=== PATIENT | female | born 1995 | race Caucasian/White ===

== ENCOUNTER → 2016-06-16 | Outpatient (CLI) | payer BC, OTHER ==
--- NOTE | 2016-06-16 10:22 | DIAGNOSTIC IMAGING REPORT ---
ABDOMEN COMPLETE (US) CLINICAL HISTORY: Nausea. COMPARISON STUDY: No previous studies for comparison. FINDINGS: Liver morphology is normal. No hepatic lesions are identified. There is no biliary ductal dilatation. No gallstones are identified. There is no gallbladder wall thickening of the pancreas is sonographically normal. The size of the spleen is normal. The right kidney measures 10.4 cm and the left measures 10.8 cm. Renal echogenicity, size and cortical thickness are normal. The caliber of the abdominal aorta is normal. Visualized portions of the IVC are patent. IMPRESSION: Unremarkable abdominal ultrasound. Electronically signed by: Lokesh Dickey M.D. 06/16/2016 10:20 AM
[2016-06-16 14:17] LABS: ALT/SGPT 27 U/L (12-78); AST/SGOT 14 U/L (15-37); BLOOD UREA NITROGEN 11 mg/dl (7-18); BUN/CREATININE RATIO 12.6 (10-20); CALCIUM 8.7 mg/dl (8.5-10.1); CARBON DIOXIDE 25 mmol/L (21-32); CHLORIDE 107 mmol/L (98-107); CREATININE 0.85 mg/dl (0.60-1.20); GLUCOSE 90 mg/dl (70-99); POTASSIUM 4.2 mmol/L (3.5-5.1); SODIUM 143 mmol/L (136-145)
[2016-06-16 14:21] LABS: ALB/GLOB RATIO 1.1 (0.9-2); ALKALINE PHOSPHATASE 124 U/L (45-117); AMYLASE 29 U/L (25-115)
== END | disposition home or self-care (01) ==
LOC: C.ULTRBC 09:31
PROVIDERS: ATTEND Internal Medicine Geriatric Medicine
DX: R11.0 Nausea (principal)

== ENCOUNTER → 2016-07-22 | Outpatient (CLI) | payer BC, OTHER ==
--- NOTE | 2016-07-22 12:37 | DIAGNOSTIC IMAGING REPORT ---
NUCLEAR GASTRIC EMPTYING STUDY HISTORY: Gastroparesis. Nausea. Vomiting. R11.0 [id number] COMPARISON: None. TECHNIQUE: Following the oral administration of 1.05 mCi of technetium 99m sulfur colloid in egg sandwich and 8 ounces of water, static abdominal images are obtained anteriorly and posteriorly at 0 minutes, 1 hour, 2 hour, and 4 hour time intervals. Gastric emptying was calculated utilizing the geometric mean method. FINDINGS: There is approximately 83 % activity remaining at the 1 hour time interval (normal is less than 90%), 50 % remaining at the 2 hour time interval (normal is less than 60%), and 0 % activity remaining at the 4 hour time interval (normal is less than 10%). IMPRESSION: Normal study Electronically signed by: Sam Corado M.D. 07/22/2016 12:36 PM Dictated Date/Time: 07/22/2016 12:35 PM
== END | disposition home or self-care (01) ==
LOC: C.NUCL 07:58
PROVIDERS: ATTEND Internal Medicine Geriatric Medicine
DX: R11.0 Nausea (principal)

== ENCOUNTER → 2016-12-25 | Outpatient (CLI) | payer OTHER ==
[2016-12-25 17:17] LABS: MANUAL MICROSCOPIC REQUIRED? NO; REVIEW REQ? NO; URINE APPEARANCE CLEAR (CLEAR); URINE BILIRUBIN NEG (NEG); URINE COLOR DK YELLOW; URINE NITRITE NEG (NEG); URINE PH 6.5 (4.5-7.5); URINE SPECIFIC GRAVITY 1.019 (1.000-1.030); UROBILINOGEN NEG (NEG); ZZUR CULT IF INDIC CLEAN CATCH NO
== END | disposition home or self-care (01) ==
LOC: C.LAB1850 16:05
PROVIDERS: ATTEND Physician Assistant
DX: R39.9 Unspecified symptoms and signs involving the genitourinary system (principal)

== ENCOUNTER → 2018-01-07 | Outpatient (CLI) | payer OTHER ==
[~2018-01-07] MED LIST: BUPR-83 PO; FENTANYL CITRATE INJ 50 MCG/1 ML 2 ML VIAL ONE; FEXO1TAB49 PO; HYDR1CAP85 PO; LIDOCAINE HCL 2% 2 ML VIAL (20MG/ML) ONE; MIDAZOLAM HCL 1 MG/ML 2ML VIAL ONE; MISCCAP80 PO; MULT-506 PO; OMEP40CA41 PO; PROPOFOL IV EMULSION 10 MG/ML 20 ML VIAL ONE; VENL75CA94 PO
--- NOTE | 2018-01-08 05:24 | PAP/PSG TECHNICIAN REPORT ---
[facility] Room Manager Polysomnogram Report Study name: None Report date: 01/08/2018 Study date: 01/07/2018 Referring Physician: Jewel Allen M.D. Name: WELLINGTON ECKERT Interpreting Physician: Jewel Allen M.D. Date of : 1995 Room Manager: RAFI Bowling. Sex: Female Age: 22 StudyType: PSG Weight: 266.8 lbs Height: 22 years, Height 5' 2" Neck Circum:16inches BMI: 48.79 Medications: Azelastine HCl 0.15% nasal soln, Bupropion HCl ER 100mg, Fexofenadine 180mg, Hydroxyzine HCl 25mg, Nasacort, Nexplanon 68mg, Omeprazole 40mg, Ondansetron 4mg, Probiotic, Venlafaxine HCl 37.5mg and 75mg, Melatonin 10mg Patient History Study started on room air with no ETCO2 monitoring in room #8. 22 yr old female here tonight for a possible split psg if she reaches an AHI>15 with 2 hours of sleep. She complains of EDS, loud snoring and witnessed apnea. Her ESS=6/24. Neck circ=16inches. Parameters Monitored NPSG: E1-M2, E2-M1, Fp1-M2, Fp2-M1, F3-M2, F4-M2, F4-M1, C3-M2, C4-M2, C4-M1, O1-M2, O2-M2, O2-M1, T3-M2, T4-M1, P3-M2, P4-M1, CHIN1, CHIN2, HR, EKG, Legs, PFLOW, SNOR, FLOW, CFLOW, Tidal Volume, THOR, ABDO, SpO2, PLTH, CPRESS, ETCO2 Wave, ETCO2, pH Sleep Architecture Sleep Stages Time at Lights Off 10:05:16 PM STAGES Time (min.) TST (%) Time at Lights On 5:18:46 AM Wake 82.0 -- Total Recording Time (TRT) 433.50 min. N1 38.5 11 Total Sleep Period (TSP) 415.0 min. N2 225.0 64 Total Sleep Time (TST) 351.5min. N3 37.5 11 Awake Time 82.0 min. REM 50.5 14 Wake after Sleep Onset 63.5 min. Sleep Efficiency (SE) 81 % Sleep Onset Latency (MERA) 18.5 min. Number of Stage 1 Shifts None Awakenings 33 Stage Changes 140 Number of REM periods 7 REM 50.5 14 REM Latency 289.0 min. NREM 301.0 86 Body Position Analysis Supine Right Left Side Prone Vertical Total Sleep Time (min.) 182.2 64.7 105.5 170.18 32.9 0.0 Total Sleep Time (%) 46% 18% 30% 48 5% N/A% Total Sleep Time REM (min.) 7.5 43.0 0.0 None 0.0 0.0 Total Sleep Time NREM (min.) 155.3 21.7 105.5 None 18.5 0.0 Intermittent Wake (min.) 19.4 12.9 35.4 None 14.4 0.0 Total Sleep Period (%) 42% None None None None None Arousals Myoclonus (PLM) * Events Count Index Events Count Index Spontaneous 21 4 Events Awake (PLMW) 137 100.2 Respiratory 14 2.0 Events Asleep w/ Arousal (PLMA) 27 4.6 PLM 25 5 Events Asleep w/o Arousal (PLMS) 61 10.4 Snoring 41 7 Total Asleep 88 15.0 Total 100 17 Total 225 31 Respiratory Analysis * CA OA MA CH H RERA Total Count 1 5 0 0 23 1 29 Index 0.2 0.9 0.0 0 3.9 0 5.1 Mean Duration 10.9 16.1 0.0 0.00 21.7 15.0 20.2 Longest Duration 10.9 23.5 0.0 0.00 0.0 15.0 59.1 Respiratory Event Summary Total Supine ~Supine Right Left Prone REM NREM Apneas Count 6 1 5 1 4 0 1 5 Index 1.0 0 2 0.9 2.3 0 1 1 Hypopneas (4% Desat) Count 23 16 7 5 2 0 7 16 Index 3.9 5.9 2 4.6 1.1 0.0 8.3 3.2 Apneas & All Hypopneas Count 29 17 12 6 6 0 8 21 Index 5.0 6 4 6 3 0 9.5 4.2 Respiratory Events (Compensator+All Hyp+RERA) Count 29 18 12 6 6 0 8 21 Index 5.1 7 4 5.6 3.4 0.0 9.5 4.4 Respiratory Related Arousal Count 14 18 1 0 1 0 0 12 Index 2.0 4 0 0 1 0 0 2 Snoring Analysis Supine Right Left Prone REM NREM Total Snore duration 22.5 min Snores count 629 42 400 10 32 1,049 1,081 Snore mean duration 1.3 Sec Snores index 232 39 228 32 38.0 209.1 184.5 TST with snoring (%) 6.4% Desaturation Event Summary: Minimum %SpO2 Event Count Mean/Min/Max Duration(sec.) Desaturation Index % Time In Bed > 90 46 23.8 / 5.0 / 59.0 7.5 90.5 86 - 90 4 19.6 / 4.0 / 46.0 6.9 8.6 81 - 85 0 N/A 0.0 0.9 76 - 80 0 N/A 0.0 0.0 71 - 75 0 N/A 0.0 0.0 66 - 70 0 N/A 0.0 0.0 61 - 65 0 N/A 0.0 0.0 56 - 60 0 N/A 0.0 0.0 51 - 55 0 N/A 0.0 0.0 < 50 0 N/A 0.0 0.0 Total REM NREM Awake <50% 0.0 min. 0.0 min. 0.0 min. 0.0 min. 51 - 60% 0.0 min. 0.0 min. 0.0 min. 0.0 min. 61 - 70% 0.0 min. 0.0 min. 0.0 min. 0.0 min. 71 - 80% 0.0 min. 0.0 min. 0.0 min. 0.0 min. 81 - 90% 38.4 min. 16.6 min. 8.3 min. 13.5 min. 91 - 100% 366.5 min. 29.1 min. 286.6 min. 50.9 min. Average 94 92 94 93 Minimum SpO2 72 85 83 72 Desaturation Event Index 6.5 9.5 6.0 8.0 # Desat. Events below 89% 6 1 2 3 Time(%) with Saturation below 89% 2.9 1.6 0.5 0.8 Time(min.) with Saturation below 89% 11.8 6.4 2.1 3.3 Time (mins) REM (mins) NREM (mins) % of TST SpO2 Below 90% 14 5 N9 4.5 SpO2 Below 88% 1 0 0 1 Heart Rate Analysis Min (bpm) Max (bpm) Average (bpm) Awake 49 281 65 NREM 48 127 57 REM 53 127 66 Overall 48 127 59 Supplemental O2 Values Minimum O2 level: None Value Start Time End Time Room Manager Comments Mrs. Eckert slept in the right, left, supine and prone positions. No cardiac arrhythmia noted. PLM's were noted. No bruxism noted. Snoring was noted and scored as a 3 on a scale of 1 through 5. (0=no snoring, 5=snoring loud enough to be heard through a closed door or down the rehman way) She awoke to use the restroom 1 time during the night. She stated that she slept a little worse than when at home and that her back was hurting. She did not qualify for a split night study. The final report will be interpreted and signed by a sleep physician. The completed physician report will then be placed in the patient medical record. Therapy (cm H2O) 0 TIB (min.) 433.5 TST (min.) 351.5 Sleep Onset (min.) 18.5 REM Onset From Sleep (min.) 289.0 Sleep Efficiency % 81 Wakefulness (%) 19 Wakefulness (min.) 82.0 NREM 1 (%) 11 NREM 1 (min.) 38.5 NREM 2 (%) 64 NREM 2 (min.) 225.0 NREM 3 (%) 11 NREM 3 (min.) 37.5 REM (%) 14 REM (min.) 50.5 # Arousals 100 Arousal Index 17 # Snore 1,081 Snore Index 184.5 AHI 5.0 AHI Supine 6 AHI Non-Supine 4 NREM AHI 4.2 REM AHI 9.5 RDI 5.1 # Obstructive Apnea 5 # Central Apnea 1 # Mixed Apnea 0 # Hypopneas 23 RERAs 1 Total Respiratory Events 33 Time Below SpO2 89% (min.) 8.5 Mean NREM SpO2 (%) 94 Mean REM SpO2 (%) 92 Mean Sleep SpO2 (%) 94 Min NREM SpO2 (%) 83 Min REM SpO2 (%) 85 Position Supine (min.) 182.2 Position Non-supine (min.) 188.7 LM Index Sleep 15.0 LM Index NREM 16.7 LM Index REM 4.8 Mean Heart Rate (bpm) 59 Min Heart Rate (bpm) 48
--- NOTE | 2018-01-16 19:47 | POLYSOMNOGRAPH REPORT ---
CLINICAL DATA: A 22-year-old female with BMI of 48.8, referred for a possible split night sleep study with complaints of excessive daytime sleepiness, loud snoring, and witnessed apnea. SLEEP ARCHITECTURE: Total sleep period was 415 minutes. Total sleep time was 351.5 minutes divided between 301 minutes of non-REM sleep and 50.5 minutes of REM sleep. Sleep onset latency was 18.5 minutes. REM latency was delayed at 289 minutes. Sleep efficiency was 81%. Wake after sleep onset was 63.5 minutes. Sleep consisted of stage N1 of 11%, stage N2 of 64%, stage N3 of 11%, and REM 14%. AROUSAL DATA: 100 arousals were recorded for an index of 17 per hour, 14 were due to respiratory events, 41 were due to snoring events. PLM DATA: 88 limb movements during sleep were noted for an index of 15 per hour with arousal index of 4.6 per hour. RESPIRATORY DATA: Very mild sleep apnea/hypopnea was noted. The AHI was 5.0. The RDI was 5.1. There were 1 central and 5 obstructive apneic episodes. The longest duration of apnea was 23.5 seconds. There were 23 hypopneic episodes with mean duration of 21.7 seconds. There was 1 RERA of 50 seconds in duration. OXIMETRY DATA: Nocturnal hypoxemia was seen. Oxygen twan was 83%. Mean saturation was 94%. Time below 89% was 11.8 minutes. EKG: Heart rates ranged from 48 to 127 beats per minute. No arrhythmias were noted. JACKER FEEDER'S COMMENTS: The patient slept in the right, supine, and prone positions. Snoring was moderate, rated 3 on a scale of 1 through 5. She slept worse than usual due to back pain. IMPRESSION: Very mild sleep apnea/hypopnea with an AHI of 5 and an RDI of 5.1, with mild nocturnal hypoxemia. RECOMMENDATIONS: Patient may benefit from weight loss, use of an oral appliance, or repeat sleep study with CPAP. Clinical correlation is needed.
== END | disposition home or self-care (01) ==
LOC: C.NEUR 21:00
PROVIDERS: ATTEND Internal Medicine Pulmonary Disease
DX: G47.19 Other hypersomnia (principal); R53.83 Other fatigue; E66.9 Obesity, unspecified; G47.61 Periodic limb movement disorder; R06.83 Snoring; R06.81 Apnea, not elsewhere classified